=== PATIENT | male | born 1990 | race Two or more races ===

== ENCOUNTER 2024-05-23 15:59 | Emergency (ER) | payer OTHER ==
[~2024-05-23] VITALS: Ht 170.2 cm; Wt 73.7 kg
[2024-05-23 16:12] VITALS: BP 113/68; PULSE 69; RESP 17; TEMP 99.6; O2SAT 96
--- NOTE | 2024-05-23 16:42 | DVH ---
EXAM: XY R SHOULDER 2+ VIEW XRAY HISTORY: s/p fall COMPARISON: None TECHNIQUE: 3 views of the right shoulder were performed. FINDINGS: No acute fracture or dislocation are identified about the right shoulder. No significant degenerativ e changes or loss of subacromial space. IMPRESSION: Unremarkable radiographs of the right shoulder.
[2024-05-23] MEDS ORDERED: IBUP-1456 PO (18:44)
--- NOTE | 2024-05-23 18:44 | ED.PDOC ---
Musculoskeletal HPI Comments 34-year-old male presents to ER with complaints of right shoulder pain x1 day. Patient reports that he had an approximately 3 ft fall out of a truck at work today and landed on his right shoulder onto cement and has since been experiencing 9/10 right shoulder pain. Denies head injury/LOC. States his pain is worse with movement and better with rest. Denies use of medications for current symptoms. Patient presents to ER ambulatory on arrival, with steady gait, in no distress. Denies neck pain, shortness of breath, chest pain, skin changes, numbness/tingling or any further symptoms/complaints Chief Complaint: Upper Extremity Time Seen by MD: 18:06 Primary Care Provider: UNKNOWN Reviewed Notes: Nurses Notes, Medications, Allergies Allergies: Coded Allergies: NO KNOWN ALLERGIES (Unverified , 05/23/24) Home Meds Active Scripts Ibuprofen (Ibuprofen) 800 Mg Tab, 1 TAB PO TID PRN, #30 TAB 0 Refills Prov:THAD GOLDBERG 05/23/24 Information Source: Patient Mode of Arrival: Ambulatory Past Medical History PAST MEDICAL HISTORY: Denies Surgical History: Denies all surgeries Family History Family History: Unknown Social History Smoker: Non-Smoker Alcohol: Denies ETOH Use Drugs: Denies Drug Use Lives In: Home Constitutional: denies: chills, diaphoresis, fatigue, fever, malaise, sweats, weakness, others EENTM: denies: blurred vision, double vision, ear bleeding, ear discharge, ear drainage, ear pain, ear ringing, eye pain, eye redness, hearing loss, mouth pain, mouth swelling, nasal discharge, nose bleeding, nose congestion, nose pain, photophobia, tearing, throat pain, throat swelling, voice changes, others Respiratory: denies: cough, hemoptysis, orthopnea, SOB at rest, shortness of breath, SOB with excertion, stridor, wheezing, others Cardiovascular: denies: chest pain, dizzy spells, diaphoresis, Dyspnea on exertion, edema, irregular heart beat, left arm pain, lightheadedness, palpit ations, PND, syncope, others Gastrointestinal: denies: abdomen distended, abdominal pain, blood streaked b owels, constipated, diarrhea, dysphagia, difficulty swallowing, hematemesis, melena, nausea, poor appetite, poor fluid intake, rectal bleeding, rectal pain, vomiting, others Genitourinary: denies: burning, dysuria, flank pain, frequency, hematuria, incontinence, penile discharge, penile sore, pain, testicle pain, testicle swelling, urgency, others Neurological: denies: dizziness, fainting, headache, left sided numbness, left sided weakness, numbness, paresthesia, pre-existing deficit, right sided numbness, right sided weakness, seizure, speech problems, tingling, tremors, weakness, others Musculoskeletal: reports: others (As stated in HPI) Integumetry: denies: bruises, change in color, change in hair/nails, dryness, laceration, lesions, lumps, rash, wounds, others Allergic/Immunocompromised: denies: Difficulty Healing, Frequent Infections, Hives, Itching, others Hematologic/Lymphatic: denies: anemia, blood clots, easy bleeding, easy bruising, swollen glands, others Endocrine: denies: excessive hunger, excessive sweating, excessive thirst, excessive urination, flushing, intolerance to cold, intolerance to heat, unexplained weight gain, unexplained weight loss, others Psychiatric: denies: anxiety, bipolar disorder, depression, hopeless, panic disorder, schizophrenia, sleepless, suicidal, others Physical Exam General Appearance: No Apparent Distress HEENT: PERRL/EOMI Neck: Full Range of Motion, Non-Tender, Normal Respiratory: Chest Non-Tender, Lungs Clear, No Accessory Muscle Use, No Respiratory Distress, Normal Breath Sounds Cardiovascular: No Murmur, No Gallop, Regular Rate/Rhythm Breast Exam: Deferred Gastrointestinal: NOT DONE Genitalia: Deferred Pelvic: Deferred Rectal: Deferred Extremities: Normal capillary refill Musculoskeletal : Extremity Location: Shoulder (TTP to right proximal humerus noted. Positive Apley scratch test on right. No skin changes/deformity noted. No other TTP to right upper extremity noted. 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 Was a procedure done?: No Sedation Sedation?: No Differential Diagnosis EXT Differential Diagnosis: Fracture, Dislocation, Neurovascular injury X-Ray, Labs, Meds, VS Vital Signs Date Time Temp Pulse Resp B/P (MAP) Pulse Ox O2 Delivery O2 Flow Rate FiO2 05/23/24 16:12 99.6 69 17 113/68 (83) 96 99.6 Current Medications Medications (Trade) Dose Ordered Sig/Sanaz Route Start Time Stop Time Status Last Admin Ketorolac Tromethamine (Toradol Injection) 60 mg ONCE ONCE IM 05/23/24 18:45 05/23/24 18:46 DC 05/23/24 18:49 PATIENT: AMARA WENACCT: [id number]: [id number] : 1990 LOC: ER ROOM / BED: / AGE / SEX: 34 / M ADM STATUS: REG ER SERVICE 1611 ORDERING PHYSICIAN: CASIMIRO WOODS NP PROCEDURE(s): RSHD2 - R SHOULDER 2+ VIEW XRAY REASON: s/p fall ORDER NUMBER(s): [id number], ACCESSION NUMBER(s): [id number] EXAM: XY R SHOULDER 2+ VIEW XRAY HISTORY: s/p fall COMPARISON: None TECHNIQUE: 3 views of the right shoulder were performed. FINDINGS: No acute fracture or dislocation are identified about the right shoulder. No significant degenerative changes or loss of subacromial space. IMPRESSION: Unremarkable radiographs of the right shoulder. ATED BY: GIO COREY MD DICTATED DATE/TIME: 05/23/24 1640 SIGNED BY: GIO COREY MD SIGNED DATE/TIME: 05/23/24 1640 CC: Right shoulder x-ray reviewed Toradol 60 mg IM ordered Patient neurovascularly intact Right arm sling applied Workman's comp paperwork filled out Advised on rest/ no strenuous activity, elevation and alternate ice on/off as needed for pain Advised to follow up with PCP, workman's comp PCP and orthopedics in 1-2 days Patient verbalized understanding and agreeable with current plan of care Advised to return to ER immediately if symptoms worsen Images Reviewed?: Images reviewed and evaluated by me Time of 1ST Reevaluation: 18:20 Reevaluation 1ST: N/A Patient Education/Counseling: Diagnosis, Treatment, Prognosis, Need For Follow Up Family Education/Counseling: No Family Present Departure 1 Departure Time of Disposition: 18:42 Impression: Primary Impression: Strain of shoulder, right Qualified Codes: S46.911A - Strain of unspecified muscle, fascia and tendon at shoulder and upper arm level, right arm, initial encounter Disposition: HOME / SELF CARE / HOMELESS Condition: Stable e-Prescriptions Ibuprofen (Ibuprofen) 800 Mg Tab 1 TAB PO TID PRN, #30 TAB 0 Refills Prov: THAD GOLDBERG 05/23/24 Discharged With: Friend Critical Care Note Critical Care Time?: No Stability Stability form required: No Heart Score Heart Score: Heart Score Response (Comments) Value History N/A 0 EKG N/A 0 Age N/A 0 Risk Factors N/A 0 Troponin N/A 0 Total 0 THAD GOLDBERG May 23, 2024 18:44
[2024-05-23] MEDS: KETOROLAC TROMETH 60MG/2ML VIAL IM ONE (18:49)
== END 2024-05-23 19:09 | disposition home or self-care (01) ==
LOC: ER 15:59
DX: S46.911A Strain of unspecified muscle, fascia and tendon at shoulder and upper arm level, right arm, initial encounter (principal); W19.XXXA Unspecified fall, initial encounter; Y93.89 Activity, other specified; Y92.89 Other specified places as the place of occurrence of the external cause; Y99.8 Other external cause status
CPT/HCPCS: 73030; 96372; 99283; J1885